=== PATIENT | female | born 1960 | race African-American/Black ===

== ENCOUNTER 2024-07-04 23:30 | Inpatient (IN) | payer MEDICARE, OTHER ==
[~2024-07-04] VITALS: Ht 165.1 cm; Wt 88.5 kg
[2024-07-05 00:23] LABS: BASOPHILS % (AUTO) 0.6 % (0.0-2.0); EOSINOPHILS # (AUTO) 0.1 K/uL (0.0-0.7); EOSINOPHILS % (AUTO) 1.8 % (0.0-7.0); HEMATOCRIT 27.4 % (31.2-41.9); HEMOGLOBIN 8.7 g/dL (10.9-14.3); LYMPHOCYTES # (AUTO) 2.4 K/uL (0.8-4.8); LYMPHOCYTES % (AUTO) 35.7 % (20.5-51.5); MEAN CORPUSCULAR HEMOGLOBIN 25.6 uug (24.7-32.8); MEAN CORPUSCULAR HGB CONC 32 g/dL (32.3-35.6); MEAN CORPUSCULAR VOLUME 80.6 fL (75.5-95.3); MONOCYTES # (AUTO) 0.6 K/uL (0.1-1.30); NEUTROPHILS # (AUTO) 3.5 K/uL (1.8-8.9); NEUTROPHILS % (AUTO) 52.9 % (38.5-71.5); PLATELET COUNT (AUTO) 250 K/uL (179-408); RED BLOOD CELL COUNT(AUTO) 3.39 MIL/uL (3.63-4.92); WHITE BLOOD COUNT (AUTO) 6.7 K/uL (3.8-11.8)
[2024-07-05 00:24] LABS: DIFFERENTIAL COMMENT 1
[2024-07-05] MEDS ORDERED: HYDROCODONE/APAP 10-325 MG TABLET ONE (00:32)
[2024-07-05] MEDS: HYDROCODONE/APAP 10-325 MG TABLET PO ONE ×2 (00:33→01:01)
[2024-07-05 00:44] LABS: ALANINE AMINOTRANSFERASE 14 U/L (14-59); ALBUMIN 3.3 g/dL (3.4-5.0); ALKALINE PHOSPHATASE 138 U/L (50-136); ASPARTATE AMINOTRANSFERASE < 5 U/L (15-37); BILIRUBIN,DIRECT 0.1 mg/dL (0.0-0.2); BILIRUBIN,TOTAL 0.3 mg/dL (0.2-1.0); CALCIUM 8.6 mg/dL (8.5-10.1); CARBON DIOXIDE 26 mmol/L (21-32); CHLORIDE 101 mmol/L (98-107); CREATININE 1.6 mg/dL (0.6-1.3); NT-PRO BNP 1783 pg/mL (0-125); SODIUM SERUM 136 mmol/L (136-145); TOTAL PROTEIN, SERUM 8.2 g/dL (6.4-8.2); UREA NITROGEN, BLOOD 18 mg/dL (7-18)
[2024-07-05 00:45] LABS: GLUCOSE 419 mg/dL (74-106)
[2024-07-05] MEDS ORDERED: HYDROMORPHONE HCL 2 MG TABLET ONE ×2 (01:31→04:37)
[2024-07-05] MEDS ORDERED: INSULIN REGULAR, HUMAN 1000 UNIT/10 ML VIAL ONE (01:33)
[2024-07-05] MEDS: HYDROMORPHONE HCL 2 MG TABLET PO ONE ×3 (01:34→04:37)
[2024-07-05] MEDS: INSULIN REGULAR, HUMAN 1000 UNIT/10 ML VIAL IV ONE (01:43)
[2024-07-05] MEDS ORDERED: HYDR-3980 PO (04:21)
[2024-07-05] MEDS ORDERED: CARV3.122 PO (04:21)
[2024-07-05] MEDS ORDERED: INSULIN REGULAR, HUMAN 1000 UNIT/10 ML VIAL SQ PRN (06:00)
[2024-07-05] MEDS ORDERED: ONDANSETRON 4 MG/2 ML VIAL IV PRN (06:00)
[2024-07-05] MEDS ORDERED: REMEDY ESSENTIAL ZINC PASTE 113 GM TP PRN (06:00)
[2024-07-05] MEDS ORDERED: MAGNESIUM HYDROXIDE 30 ML LIQUID UDC PO PRN (06:00)
[2024-07-05] MEDS ORDERED: DEXTROSE 50% 50 ML DISP.SYRIN IV PRN (06:30)
[2024-07-05] MEDS: PANTOPRAZOLE SODIUM 40 MG TABLET.DR PO SCH (06:45)
[2024-07-05 07:00] VITALS: BP 153/75; TEMP 98; O2SAT 97
[2024-07-05] MEDS: BLOOD SUGAR DIAGNOSTIC 1 EACH STRIP VI SCH (07:04)
[2024-07-05] MEDS ORDERED: BLOOD SUGAR DIAGNOSTIC 1 EACH STRIP VI SCH (07:30)
[2024-07-05 08:14] LABS: BASOPHILS % (AUTO) 0.4 % (0.0-2.0); EOSINOPHILS # (AUTO) 0.2 K/uL (0.0-0.7); EOSINOPHILS % (AUTO) 2.1 % (0.0-7.0); HEMATOCRIT 29.2 % (31.2-41.9); HEMOGLOBIN 9.2 g/dL (10.9-14.3); LYMPHOCYTES # (AUTO) 3.1 K/uL (0.8-4.8); LYMPHOCYTES % (AUTO) 40.4 % (20.5-51.5); MEAN CORPUSCULAR HEMOGLOBIN 25.4 uug (24.7-32.8); MEAN CORPUSCULAR HGB CONC 32 g/dL (32.3-35.6); MEAN CORPUSCULAR VOLUME 80.8 fL (75.5-95.3); MONOCYTES # (AUTO) 0.6 K/uL (0.1-1.30); MONOCYTES % (AUTO) 7.8 % (0.0-11.0); NEUTROPHILS # (AUTO) 3.8 K/uL (1.8-8.9); NEUTROPHILS % (AUTO) 49.3 % (38.5-71.5); PLATELET COUNT (AUTO) 255 K/uL (179-408); RED BLOOD CELL COUNT(AUTO) 3.62 MIL/uL (3.63-4.92); RED CELL DISTRIBUTION WIDTH 19.8 % (12.3-17.7); WHITE BLOOD COUNT (AUTO) 7.6 K/uL (3.8-11.8)
[2024-07-05 08:21] LABS: DIFFERENTIAL COMMENT 1
[2024-07-05] MEDS: INSULIN REGULAR, HUMAN 1000 UNIT/10 ML VIAL SQ PRN (08:32)
[2024-07-05 08:38] LABS: ALBUMIN 3.6 g/dL (3.4-5.0); BILIRUBIN,DIRECT 0.1 mg/dL (0.0-0.2); BILIRUBIN,TOTAL 0.3 mg/dL (0.2-1.0); CALCIUM 8.6 mg/dL (8.5-10.1); CREATININE 1.5 mg/dL (0.6-1.3); MAGNESIUM 2.4 mg/dL (1.8-2.4); PHOSPHOROUS 2.5 mg/dL (2.5-4.9); TOTAL PROTEIN, SERUM 8.5 g/dL (6.4-8.2)
[2024-07-05 08:44] LABS: POTASSIUM 4.4 mmol/L (3.5-5.1)
[2024-07-05 09:53] LABS: THYROID STIMULATING HORMONE 10.971 mIU/mL (0.358-3.740)
[2024-07-05] MEDS: HYDROMORPHONE HCL 2 MG TABLET PO PRN (11:14)
[2024-07-05] MEDS ORDERED: FURO40TA5 PO (11:18)
[2024-07-05] MEDS ORDERED: ASPI81TA31 PO (11:18)
[2024-07-05] MEDS ORDERED: MAG355OR35 PO (11:18)
[2024-07-05] MEDS ORDERED: SACU1TAB PO (11:18)
[2024-07-05] MEDS ORDERED: INSU100I26 SQ (11:18)
[2024-07-05] MEDS ORDERED: GABA600T12 PO (11:18)
[2024-07-05] MEDS ORDERED: FENO48TA6 PO (11:18)
[2024-07-05] MEDS ORDERED: CARV12.52 PO (11:18)
[2024-07-05] MEDS ORDERED: BISA10SU95 RC (11:18)
[2024-07-05] MEDS ORDERED: ACET325T53 PO (11:18)
[2024-07-05] MEDS ORDERED: CLOP75TA15 PO (11:18)
[2024-07-05] MEDS ORDERED: INSU100I14 SQ (11:22)
[2024-07-05] MEDS ORDERED: NITR0.4T SL (11:27)
[2024-07-05] MEDS ORDERED: EMPA10TA PO (11:27)
[2024-07-05] MEDS ORDERED: ISOS20TA8 PO (11:27)
[2024-07-05] MEDS ORDERED: HYDR-4077 PO (11:27)
[2024-07-05] MEDS ORDERED: MELA1TAB27 PO (11:27)
[2024-07-05] MEDS ORDERED: PANT40TA49 PO (11:30)
[2024-07-05] MEDS ORDERED: SERT50TA PO (11:30)
[2024-07-05] MEDS ORDERED: OMEG1CAP40 PO (11:30)
[2024-07-05 11:53] VITALS: BP 154/63; TEMP 98.3; O2SAT 98
[2024-07-05] MEDS ORDERED: AL HYDROX PO PRN (14:30)
[2024-07-05] MEDS ORDERED: MAG HYDROX PO PRN (14:30)
[2024-07-05] MEDS ORDERED: SIMETH PO PRN (14:30)
[2024-07-05] MEDS ORDERED: BISACODYL 10 MG SUPP.RECT RC PRN (14:30)
[2024-07-05] MEDS ORDERED: NITROGLYCERIN 0.4 MG/TAB BOTTLE SL PRN (14:30)
[2024-07-05] MEDS ORDERED: MELA3CAP2 PO (14:51)
[2024-07-05] MEDS: FUROSEMIDE 20 MG/2 ML VIAL IV ONE (15:06)
[2024-07-05] MEDS: hydrALAZINE HCL 50 MG TABLET PO SCH (15:32)
[2024-07-05] MEDS: CLOPIDOGREL 75 MG TABLET PO SCH (15:32)
[2024-07-05] MEDS: ASPIRIN EC 81 MG TABLET.DR PO SCH (15:32)
[2024-07-05] MEDS: ACETAMINOPHEN 325 MG TABLET PO PRN (15:41)
[2024-07-05] MEDS: CARVEDILOL 12.5 MG TABLET PO SCH (16:23)
[2024-07-05] MEDS: GABAPENTIN 300 MG CAPSULE PO SCH (16:23)
[2024-07-05] MEDS: OMEGA-3 FATTY ACIDS/FISH OIL CAPSULE PO SCH (16:23)
[2024-07-05] MEDS: ISOSORBIDE DINITRATE 20 MG TABLET PO SCH (16:23)
[2024-07-05 16:29] VITALS: BP 186/86; TEMP 98.6; O2SAT 96
[2024-07-05] MEDS ORDERED: Medication Not On Formulary EA (Gabapentin 600 MG) PO SCH (17:00)
[2024-07-05] MEDS ORDERED: Medication Not On Formulary EA (Omega-3 Fatty Acids/Fish Oil (Omega 3 1,000 Mg Softgel) PO SCH (17:00)
[2024-07-05] MEDS: MORPHINE SULFATE 4 MG/1 ML DISP.SYRIN IV PRN (18:13)
[2024-07-05 19:00] VITALS: BP 120/51; TEMP 98; O2SAT 99
[2024-07-05] MEDS: MELATONIN 3 MG TABLET PO SCH (20:39)
[2024-07-05] MEDS: SERTRALINE HCL 50 MG TABLET PO SCH (20:39)
[2024-07-05] MEDS ORDERED: MELATONIN PO SCH (21:00)
[2024-07-05] MEDS ORDERED: PYRIDOXINE HCL PO SCH (21:00)
[2024-07-06 05:18] VITALS: BP 148/68; TEMP 98.3; O2SAT 98
[2024-07-06] MEDS: PANTOPRAZOLE SODIUM 40 MG TABLET.DR PO SCH (06:19)
[2024-07-06 08:42] VITALS: BP 154/69; TEMP 98.4; O2SAT 95
[2024-07-06] MEDS ORDERED: Medication Not On Formulary EA (Empagliflozin (Jardiance) 10 MG) PO SCH (09:00)
[2024-07-06] MEDS: EMPAGLIFLOZIN 10 MG TABLET PO SCH (09:38)
[2024-07-06] MEDS: FENOFIBRATE NANOCRYSTALLIZED 48 MG TABLET PO SCH (09:38)
[2024-07-06 09:47] LABS: BASOPHILS % (AUTO) 0.7 % (0.0-2.0); EOSINOPHILS # (AUTO) 0.1 K/uL (0.0-0.7); EOSINOPHILS % (AUTO) 2.2 % (0.0-7.0); HEMATOCRIT 28.8 % (31.2-41.9); LYMPHOCYTES # (AUTO) 2.1 K/uL (0.8-4.8); LYMPHOCYTES % (AUTO) 32.8 % (20.5-51.5); MEAN CORPUSCULAR HEMOGLOBIN 25.1 uug (24.7-32.8); MEAN CORPUSCULAR HGB CONC 31 g/dL (32.3-35.6); MEAN CORPUSCULAR VOLUME 80.1 fL (75.5-95.3); MONOCYTES # (AUTO) 0.5 K/uL (0.1-1.30); NEUTROPHILS # (AUTO) 3.7 K/uL (1.8-8.9); NEUTROPHILS % (AUTO) 57.3 % (38.5-71.5); PLATELET COUNT (AUTO) 239 K/uL (179-408); RED BLOOD CELL COUNT(AUTO) 3.59 MIL/uL (3.63-4.92); RED CELL DISTRIBUTION WIDTH 19.6 % (12.3-17.7); WHITE BLOOD COUNT (AUTO) 6.4 K/uL (3.8-11.8)
[2024-07-06 10:08] LABS: DIFFERENTIAL COMMENT 1
[2024-07-06 10:42] LABS: BILIRUBIN,TOTAL 0.3 mg/dL (0.2-1.0); CALCIUM 8.6 mg/dL (8.5-10.1); CREATININE 1.5 mg/dL (0.6-1.3); MAGNESIUM 2.2 mg/dL (1.8-2.4); PHOSPHOROUS 3.1 mg/dL (2.5-4.9); POTASSIUM 4.8 mmol/L (3.5-5.1); TOTAL PROTEIN, SERUM 7.8 g/dL (6.4-8.2)
[2024-07-06] MEDS: FUROSEMIDE 40 MG TABLET PO SCH (10:48)
[2024-07-06] MEDS ORDERED: MORP30CA17 PO (10:52)
[2024-07-06] MEDS ORDERED: ASPI-618 PO (10:52)
[2024-07-06] MEDS ORDERED: CALC300T4 PO (10:53)
[2024-07-06 10:59] VITALS: BP 122/46; TEMP 98.2; O2SAT 99
[2024-07-06 11:07] LABS: THYROID STIMULATING HORMONE 6.037 mIU/mL (0.358-3.740)
[2024-07-06 11:35] LABS: ALBUMIN 3.4 g/dL (3.4-5.0)
[2024-07-06] MEDS: CALCIUM CARBONATE 500 MG TAB.CHEW PO PRN (11:48)
[2024-07-06 13:25] VITALS: BP 122/46
== END 2024-07-06 16:30 | DRG 314 ==
LOC: ER 23:39 → MEDSURG3 07-05 04:56
PROVIDERS: ADMIT Internal Medicine; ATTEND Internal Medicine
DX: T82.847A Pain due to cardiac prosthetic devices, implants and grafts, initial encounter (principal); I50.23 Acute on chronic systolic (congestive) heart failure; D68.59 Other primary thrombophilia; N17.9 Acute kidney failure, unspecified; I13.0 Hypertensive heart and chronic kidney disease with heart failure and stage 1 through stage 4 chronic kidney disease, or unspecified chronic kidney disease; I97.648 Postprocedural seroma of a circulatory system organ or structure following other circulatory system procedure; I44.7 Left bundle-branch block, unspecified; I25.5 Ischemic cardiomyopathy; N18.9 Chronic kidney disease, unspecified; E11.22 Type 2 diabetes mellitus with diabetic chronic kidney disease; Z74.09 Other reduced mobility; D63.8 Anemia in other chronic diseases classified elsewhere; E11.65 Type 2 diabetes mellitus with hyperglycemia; E66.9 Obesity, unspecified; E78.5 Hyperlipidemia, unspecified; K21.9 Gastro-esophageal reflux disease without esophagitis; Z95.1 Presence of aortocoronary bypass graft; D50.9 Iron deficiency anemia, unspecified; F32.A Depression, unspecified; G89.4 Chronic pain syndrome; Z79.891 Long term (current) use of opiate analgesic; Y83.8 Other surgical procedures as the cause of abnormal reaction of the patient, or of later complication, without mention of misadventure at the time of the procedure; Y92.89 Other specified places as the place of occurrence of the external cause; I48.0 Paroxysmal atrial fibrillation; I25.10 Atherosclerotic heart disease of native coronary artery without angina pectoris; Z68.32 Body mass index [BMI] 32.0-32.9, adult; M32.9 Systemic lupus erythematosus, unspecified; M35.00 Sjogren syndrome, unspecified; Z90.710 Acquired absence of both cervix and uterus; Z95.5 Presence of coronary angioplasty implant and graft; S20.212A Contusion of left front wall of thorax, initial encounter
CPT/HCPCS: 36415; 71045; 76881; 83550; 83735; 84100; 84443; 84484; 85025; 93005; A4606; A4663; G0378; J1815; J1940; J2270